=== PATIENT | female | born 1990 | race Two or more races ===

== ENCOUNTER 2020-12-14 20:26 | Emergency (ER) | payer OTHER ==
[~2020-12-14] VITALS: Ht 172.7 cm; Wt 54.4 kg
[2020-12-14] MEDS ORDERED: Methocarbamol 750mg tab ORAL ONE (20:45)
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
[2020-12-14 20:49] VITALS: BP 101/66
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
[2020-12-14] MEDS ORDERED: ROBAXIN-750750 MG PO (21:38)
[2020-12-14] MEDS ORDERED: LIDODERM700 M1 TOPIC (21:38)
[2020-12-14] MEDS ORDERED: IBUPROFEN600 M1 ORAL (21:38)
[2020-12-14 21:50] VITALS: BP 100/64
--- NOTE | 2020-12-14 22:02 | NUR ---
ER DISCHARGE NOTE: Prior to xrays, pt signed test waiver. Patient is cleared to be discharged per ER MD, pt is aao x4, on room air, with stable vital signs. pt was given dc and prescription instructions, pt was able to verbalize understanding, pt id band removed. pt is able to ambulate with steady gait. pt took all belongings.
--- NOTE | 2020-12-15 14:37 | Diagnostic Imaging Report ---
Indication: Pain, trauma Technique: 3 views of the sacrum and coccyx Comparison: none Findings: No acute fracture. No or malalignment. Sacral arches are preserved. Sacroiliac joint spaces are preserved Impression: Negative
--- NOTE | 2020-12-15 14:37 | Diagnostic Imaging Report ---
Indication: Back pain, trauma Technique: 3 views of the lumbar spine Comparison: None Findings: No acute fracture. No dislocation. The vertebral body heights and disc spaces are preserved. Pedicles are intact. Sacroiliac joint spaces are preserved Impression: No acute bony trauma
== END 2020-12-14 22:06 | disposition home or self-care (01) ==
LOC: EMR 21:00
DX: S39.012A Strain of muscle, fascia and tendon of lower back, initial encounter (principal); S16.1XXA Strain of muscle, fascia and tendon at neck level, initial encounter; V43.62XA Car passenger injured in collision with other type car in traffic accident, initial encounter; Y92.411 Interstate highway as the place of occurrence of the external cause
CPT/HCPCS: 72020; 72220; 99284

== ENCOUNTER 2020-12-27 12:51 | Emergency (ER) | payer OTHER ==
[~2020-12-27] VITALS: Ht 172.7 cm; Wt 57.6 kg
[~2020-12-27 12:51] MED LIST: IBUPROFEN600 M1 ORAL; LIDODERM700 M1 TOPIC; ROBAXIN-750750 MG PO
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
[2020-12-27] MEDS ORDERED: Acetaminophen 500mg (ES) tab ORAL ONE (13:45)
[2020-12-27] MEDS ORDERED: TYLENOL325 MG ORAL (14:33)
[2020-12-27 14:45] VITALS: BP 100/63
--- NOTE | 2020-12-27 14:47 | Diagnostic Imaging Report ---
Indication: Chest pain Technique: One view of the chest Comparison: none Findings: Lungs and pleural spaces are clear. Heart size is normal. Impression: No acute process
== END 2020-12-27 14:47 | disposition home or self-care (01) ==
LOC: EMR 13:59
DX: S06.0X0A Concussion without loss of consciousness, initial encounter (principal); S13.4XXA Sprain of ligaments of cervical spine, initial encounter; S50.11XA Contusion of right forearm, initial encounter; V43.62XA Car passenger injured in collision with other type car in traffic accident, initial encounter; Y92.411 Interstate highway as the place of occurrence of the external cause
CPT/HCPCS: 71045; 99283